=== PATIENT | female | born 1925 | race Caucasian/White ===

== ENCOUNTER 2016-12-04 18:12 | Inpatient (IN) | payer MEDICARE, OTHER ==
[~2016-12-04] VITALS: Ht 152.4 cm; Wt 55.3 kg
[~2016-12-04 18:12] MED LIST: AMLO5TAB2 PO; ASPI-495 PO; BETA1TAB18 PO; CARV25TA PO; CHOL100062 PO; EZET10TA PO; FENO134C PO; FERR-58 PO; HYDR-4077 PO; LEVO100T9 PO; MELA3TAB PO; OMEP20CA4 PO; SIMV20TA6 PO; SITA100T PO
--- NOTE | 2016-12-04 18:20 | NUR ---
PT BIBRA FROM HOME TO ER BED 09. WITNESSED SYNCOPE AT HOME. POSTERIOR HEAD HEMATOMA NOTED. MINIMAL PAIN. PT IS AWAKE, RESPONSIVE. PLACED ON MONITOR. STABLE VITALS AWAITING MD ERNST.
--- NOTE | 2016-12-04 18:40 | NUR ---
DR UP AT BEDSIDE FOR EVAL.
--- NOTE | 2016-12-04 18:50 | NUR ---
CALLED NURSING SUP. FOR TELE BED
--- NOTE | 2016-12-04 18:53 | NUR ---
RN LABOR AND DELIVERY AT BEDSIDE FOR BLOOD DRAW.
[2016-12-04 18:56] LABS: BASOPHILS % (AUTO) 0.3 % (0.0-2.0); EOSINOPHILS # (AUTO) 0.1 /CMM (0.0-0.7); EOSINOPHILS % (AUTO) 1.4 % (0.0-6.0); HEMATOCRIT 33 % (33-45); HEMOGLOBIN 11.2 g/dL (11.5-14.8); LYMPHOCYTES # (AUTO) 0.7 /CMM (0.8-4.8); LYMPHOCYTES % (AUTO) 9.6 % (20.0-44.0); MEAN CORPUSCULAR HEMOGLOBIN 33 PG (26.0-33.0); MEAN CORPUSCULAR HGB CONC 34 g/dl (31.0-36.0); MEAN CORPUSCULAR VOLUME 95 fL (82-100); MONOCYTES # (AUTO) 0.6 /CMM (0.1-1.30); MONOCYTES % (AUTO) 8.2 % (2.0-12.0); NEUTROPHILS # (AUTO) 5.8 /CMM (1.8-8.9); NEUTROPHILS % (AUTO) 80.5 % (43.0-81.0); PLATELET COUNT (AUTO) 232 /CMM (150-450); RDW COEFFICIENT OF VARIATION 14.6 (11.5-15.0); RED BLOOD CELL COUNT(AUTO) 3.43 MIL/uL (4.0-5.2); WHITE BLOOD COUNT (AUTO) 7.2 K/uL (4.3-11.0)
--- NOTE | 2016-12-04 19:04 | NUR ---
PT TO RADOLOGY FOR HEAD CT SCAN VIA [facility].
[2016-12-04 19:08] LABS: INR 1.07 (0.87-1.13); PROTHROMBIN TIME 11.1 SECS (9.5-12.7)
[2016-12-04 19:10] LABS: ALBUMIN 3.3 g/dL (3.4-5.0); BILIRUBIN,DIRECT 0.1 mg/dL (0.0-0.2); BILIRUBIN,TOTAL 0.2 mg/dL (0.2-1.0); CALCIUM, SERUM 9.3 mg/dL (8.5-10.1); CREATININE 0.9 mg/dL (0.6-1.3); POTASSIUM 3.5 mmol/L (3.5-5.1); TOTAL PROTEIN, SERUM 6.8 g/dL (6.4-8.2)
[2016-12-04 19:11] LABS: TROPONIN I 0.019 ng/mL (0.00-0.056)
[2016-12-04] MEDS ORDERED: CYAN10006 IM (19:16)
[2016-12-04] MEDS ORDERED: TRAZ-144 PO (19:16)
[2016-12-04] MEDS ORDERED: RANI75TA19 PO (19:16)
[2016-12-04] MEDS ORDERED: CLON0.1T PO (19:16)
[2016-12-04] MEDS ORDERED: CHOL100044 PO (19:16)
--- NOTE | 2016-12-04 19:30 | NUR ---
PT UNABLE TO PROVIDE URINE SAMPLE AT THIS TIME.
[2016-12-04 20:00] VITALS: BP 143/52
--- NOTE | 2016-12-04 20:17 | NUR ---
REPORT GIVEN TO DENISE. PT AWAITING TRANSFER TO FLOOR.
[2016-12-04] MEDS ORDERED: MENTHOL/CETYLPYRD (CEPACOL) 1 LOZ LOZENGE PO ONE (20:30)
[2016-12-04] MEDS ORDERED: ACETAMINOPHEN ES 500 MG TABLET PO ONE (20:30)
[2016-12-04] MEDS ORDERED: ACETAMINOPHEN ES 500 MG TABLET ONE (20:37)
[2016-12-04 21:08] LABS: APPEARANCE,URINE Clear (CLEAR); BILIRUBIN,URINE Negative (NEGATIVE); BLOOD, URINE Negative Ery/uL (NEGATIVE); COLOR,URINE Yellow (YELLOW); KETONES,URINE Negative (NEGATIVE); LEUKOCYTE ESTERASE ,URINE Trace (NEGATIVE); NITRITE, URINE Negative (NEGATIVE); PROTEIN,URINE Negative (NEGATIVE); UGLUCOSE Negative (NEGATIVE); UROBILINOGEN,URINE 0.2 EU/dL (0.2)
[2016-12-04 21:10] VITALS: BP 143/52
[2016-12-04 21:21] LABS: ADD URINE CULTURE NO; BACTERIA,URINE Few /HPF (None Seen); RBC,URINE 0-2 /HPF (0-2); SQUAMOUS EPITHELIAL CELL,UR Rare /HPF (None Seen)
[2016-12-04] MEDS ORDERED: ONDANSETRON HCL/PF 4 MG/2 ML VIAL IV PRN (21:30)
[2016-12-04] MEDS ORDERED: ACETAMINOPHEN 325 MG TABLET PO PRN (21:30)
--- NOTE | 2016-12-04 22:00 | NUR ---
ASPHALT DAUBER NOTES RECEIVED PT FROM ER VIA [facility]. S/P SYNCOPE EPISODE PER PT AND FAMILY. DX OF SYNCOPE. ON ROOM AIR, JULISSA WELL, SPO2 >92%. TELE READS SINUS WITH BBB AT 67 BPM. NO ACUTE DISTRESS NOTED. POSTERIOR HEAD ASSESSED, NO S/S OF BRUISING OR HEMATOMA. LEFT TOES BRUISED DUE TO TRAUMA PER PT. LEFT HAND 20G PIV, NS AT 75 ML/HR INITIATED. CALL LIGHT WITHIN REACH, HOB ELEVATED, SIDE RAIL X2.
[2016-12-04] MEDS ORDERED: GUAIFENESIN/D-METHORPHAN HB 5 ML UDC ONE (22:03)
[2016-12-04] MEDS ORDERED: IV SET PRIMARY PUMP SET 1 EA INFUS.SET MC ONE (22:03)
[2016-12-04] MEDS: GUAIFENESIN/D-METHORPHAN HB 5 ML UDC PO PRN (22:10)
[2016-12-04] MEDS: IV NS 0.9% 1,000 ML IV PRN (22:10)
[2016-12-05] VITALS (8 sets, daily range): BP systolic 120–167; BP diastolic 40–80
[2016-12-05] MEDS: BLOOD SUGAR DIAGNOSTIC 1 EACH STRIP IN SCH ×4 (06:42→21:16)
[2016-12-05 07:15] LABS: BASOPHILS % (AUTO) 0.2 % (0.0-2.0); EOSINOPHILS # (AUTO) 0.1 /CMM (0.0-0.7); EOSINOPHILS % (AUTO) 1.8 % (0.0-6.0); HEMATOCRIT 30 % (33-45); HEMOGLOBIN 9.9 g/dL (11.5-14.8); LYMPHOCYTES # (AUTO) 0.7 /CMM (0.8-4.8); MEAN CORPUSCULAR HEMOGLOBIN 32 PG (26.0-33.0); MEAN CORPUSCULAR HGB CONC 34 g/dl (31.0-36.0); MEAN CORPUSCULAR VOLUME 96 fL (82-100); MONOCYTES # (AUTO) 0.5 /CMM (0.1-1.30); MONOCYTES % (AUTO) 8.3 % (2.0-12.0); NEUTROPHILS # (AUTO) 4.5 /CMM (1.8-8.9); NEUTROPHILS % (AUTO) 77.7 % (43.0-81.0); PLATELET COUNT (AUTO) 200 /CMM (150-450); RDW COEFFICIENT OF VARIATION 15.1 (11.5-15.0); RED BLOOD CELL COUNT(AUTO) 3.06 MIL/uL (4.0-5.2); WHITE BLOOD COUNT (AUTO) 5.8 K/uL (4.3-11.0)
--- NOTE | 2016-12-05 07:15 | NUR ---
FLEET MANAGER INITIAL NOTES RECEIVED REPORT AND PT FROM PM NURSE, PT RESTING IN BED, A&O X3, AWAKE ALERT, ON 2L NC SAT ABOVE 97%, ON TELE MON SR WITH BBB HR 72, LT HAND 20 G IV RUNNING NS @ 75ML/HR NO INFILTRATION NOTED, ALL NEEDS MET, ALL SAFETY MEASURES INITIATED, SIDE RAILS X2, BED LOW AND LOCKED, CALL LIGHT WITHIN REACH, WILL CONTINUE TO MONITOR.
[2016-12-05] MEDS ORDERED: DEXTROSE 50%-WATER 50 ML DISP.SYRIN IV PRN (07:30)
[2016-12-05] MEDS ORDERED: ENOXAPARIN SODIUM 30 MG/0.3 ML DISP.SYRIN SQ SCH (07:30)
[2016-12-05 07:32] LABS: TROPONIN I 0.029 ng/mL (0.00-0.056)
[2016-12-05 07:57] LABS: CALCIUM, SERUM 8.6 mg/dL (8.5-10.1); CREATININE 0.8 mg/dL (0.6-1.3); POTASSIUM 3.7 mmol/L (3.5-5.1)
[2016-12-05] MEDS ORDERED: CLONIDINE HCL 0.1 MG TABLET PO PRN (08:00)
[2016-12-05] MEDS ORDERED: SIMVASTATIN 20 MG TABLET PO SCH (08:00)
[2016-12-05] MEDS: FAMOTIDINE (20 MG) 20 MG TABLET PO SCH (09:00)
[2016-12-05] MEDS: hydrALAZINE HCL 50 MG TABLET PO SCH ×2 (09:00→16:54)
[2016-12-05] MEDS: CARVEDILOL 12.5 MG TABLET PO SCH ×2 (09:00→20:40)
[2016-12-05] MEDS ORDERED: ASPIRIN 81 MG TAB.CHEW PO SCH (09:00)
[2016-12-05] MEDS: ENOXAPARIN SODIUM 30 MG/0.3 ML DISP.SYRIN SQ SCH (09:00)
[2016-12-05] MEDS: LEVOTHYROXINE SODIUM 100 MCG TABLET PO SCH ×3 (09:00→17:56)
[2016-12-05] MEDS: SITAGLIPTIN PHOSPHATE 50 MG TABLET PO SCH (09:29)
[2016-12-05] MEDS: MULTIVITAMINS W-MINERALS 1 TAB TABLET PO SCH ×2 (09:29→16:54)
[2016-12-05] MEDS: FERROUS SULFATE (325 MG) 325 MG/TAB TABLET PO SCH (09:29)
[2016-12-05] MEDS: CHOLECALCIFEROL 1,000 UNIT TABLET (VIT D3) PO SCH ×2 (09:29→16:57)
[2016-12-05] MEDS: EZETIMIBE 10 MG TABLET PO SCH (09:30)
[2016-12-05 10:47] LABS: THYROID STIMULATING HORMONE 4.981 uIU/mL (0.358-3.74)
[2016-12-05] MEDS: IV NS 0.9% 1,000 ML IV PRN (11:15)
[2016-12-05] MEDS: AZITHROMYCIN 250 MG TABLET PO SCH (13:07)
[2016-12-05] MEDS: GUAIFENESIN/D-METHORPHAN HB 5 ML UDC PO PRN (14:17)
[2016-12-05] MEDS ORDERED: SECONDARY IV SET 1 EA INFUS.SET MC ONE (15:56)
[2016-12-05] MEDS: SOD FERRIC GLUC 125 MG in IV NS 0.9% 100 ML IV SCH (16:22)
[2016-12-05] MEDS: ASPIRIN EC 81 MG TABLET.DR PO SCH (16:58)
[2016-12-05] MEDS: AMLODIPINE BESYLATE 5 MG TABLET PO SCH (16:58)
--- NOTE | 2016-12-05 19:39 | NUR ---
RN-- RECEIVED AWAKE, ALERT ORIENTED X3, ON BEDPAN TO VOID, VOIDED FREELY TO 150 CC OF YELLOW URINE, DENIES CHEST PAINS, NO SOB, FALL PRECAUTION/INSTRUCTED TO CALL FOR ASSISTANCE BEFORE GETTING OUT BED/ CALL HAWKINS WITHIN REACH, ORTHOSTATIC BP TAKEN LEFT ARM 144/50 , SITTING BP 145/51, STANDING BP 138/48, NO DIZZINESS. TEMP 99.7 HR 71 RR 18 O2 SAT 96% ON O2 2LPM VIA NASAL CANNULA
--- NOTE | 2016-12-05 21:05 | NUR ---
RN-- ONE HOME MED FENOFIBRATE DUE AT 1800 NOT CHARTED, CALL MADE BY CHARGE NURSE HUGH TO [facility] RE[facility] TO VERIFY IF GIVEN, BRANDT REINA SAID SHE DID NOT GIVE IT, WILL GIVE THE MED NOW
[2016-12-05] MEDS: FENOFIBRATE 134 MG PO SCH (21:10)
[2016-12-05] MEDS ORDERED: TRAZODONE 50 MG TABLET PO PRN (22:00)
[2016-12-06] MEDS: IV NS 0.9% 1,000 ML IV PRN ×2 (01:27→09:51)
[2016-12-06 04:00] VITALS: BP 151/55
[2016-12-06 05:00] VITALS: BP 151/55
[2016-12-06 07:10] LABS: BASOPHILS % (AUTO) 0.4 % (0.0-2.0); EOSINOPHILS # (AUTO) 0.1 /CMM (0.0-0.7); HEMATOCRIT 30 % (33-45); HEMOGLOBIN 10.1 g/dL (11.5-14.8); LYMPHOCYTES # (AUTO) 0.8 /CMM (0.8-4.8); LYMPHOCYTES % (AUTO) 12.3 % (20.0-44.0); MEAN CORPUSCULAR HEMOGLOBIN 33 PG (26.0-33.0); MEAN CORPUSCULAR HGB CONC 34 g/dl (31.0-36.0); MEAN CORPUSCULAR VOLUME 97 fL (82-100); MONOCYTES # (AUTO) 0.5 /CMM (0.1-1.30); MONOCYTES % (AUTO) 8.9 % (2.0-12.0); NEUTROPHILS # (AUTO) 4.7 /CMM (1.8-8.9); NEUTROPHILS % (AUTO) 76.4 % (43.0-81.0); PLATELET COUNT (AUTO) 204 /CMM (150-450); RDW COEFFICIENT OF VARIATION 15.4 (11.5-15.0); RED BLOOD CELL COUNT(AUTO) 3.11 MIL/uL (4.0-5.2); WHITE BLOOD COUNT (AUTO) 6.1 K/uL (4.3-11.0)
--- NOTE | 2016-12-06 07:30 | NUR ---
INITIAL NOTE PATIENT RESTING IN BED A+OX3, MAKES NEEDS KNOWN. DENIES PAIN, DENIES SOB. DENIES DIZZINESS. BREATHING WNL ON 2L NC O2. STATES HAS A PRODUCTIVE COUGH. NO SPUTUM OBSERVED AT THIS TIME. WILL INFORM MD. BRISCOE ON L HAND PATENT, NO COMPLICATIONS. INFUSING NS @ 125/HR. DISCUSSED PLAN OF CARE. CALL LIGHT IN REACH.
[2016-12-06] MEDS: BLOOD SUGAR DIAGNOSTIC 1 EACH STRIP IN SCH ×4 (07:56→22:00)
[2016-12-06 08:00] VITALS: BP_SYST 152; BP_SYST 156; BP_SYST 160; BP_DIAS 49; BP_DIAS 55; BP_DIAS 61
[2016-12-06] MEDS: AZITHROMYCIN 250 MG TABLET PO SCH (08:03)
[2016-12-06] MEDS: EZETIMIBE 10 MG TABLET PO SCH (08:04)
[2016-12-06] MEDS: CHOLECALCIFEROL 1,000 UNIT TABLET (VIT D3) PO SCH ×2 (08:04→17:19)
[2016-12-06] MEDS: MULTIVITAMINS W-MINERALS 1 TAB TABLET PO SCH ×2 (08:04→17:18)
[2016-12-06] MEDS: LEVOTHYROXINE SODIUM 100 MCG TABLET PO SCH (08:04)
[2016-12-06] MEDS: FAMOTIDINE (20 MG) 20 MG TABLET PO SCH (08:05)
[2016-12-06] MEDS: CARVEDILOL 12.5 MG TABLET PO SCH ×2 (08:05→22:00)
[2016-12-06] MEDS: SITAGLIPTIN PHOSPHATE 50 MG TABLET PO SCH (08:05)
[2016-12-06] MEDS: hydrALAZINE HCL 50 MG TABLET PO SCH ×2 (08:05→17:18)
[2016-12-06] MEDS: FERROUS SULFATE (325 MG) 325 MG/TAB TABLET PO SCH (08:05)
[2016-12-06] MEDS: ENOXAPARIN SODIUM 30 MG/0.3 ML DISP.SYRIN SQ SCH ×2 (08:07→09:00)
--- NOTE | 2016-12-06 08:16 | NUR ---
PATIENT REFUSED LOVENOX- PROVIDED DETAILED EDUCATION ON RISK OF THROMBUS
[2016-12-06 08:25] LABS: ALBUMIN 2.7 g/dL (3.4-5.0); BILIRUBIN,TOTAL 0.3 mg/dL (0.2-1.0); CALCIUM, SERUM 8.6 mg/dL (8.5-10.1); CREATININE 0.7 mg/dL (0.6-1.3); MAGNESIUM 1.6 mg/dL (1.8-2.4); PHOSPHORUS 2.7 mg/dL (2.5-4.9); POTASSIUM 3.6 mmol/L (3.5-5.1); TOTAL PROTEIN, SERUM 6.1 g/dL (6.4-8.2)
[2016-12-06] MEDS: Magnesium 1GM/D5W 100ML PREMIX 100 ML IV SCH ×2 (11:22→12:45)
[2016-12-06] MEDS ORDERED: BENZONATATE 100 MG CAPSULE PO PRN (12:00)
[2016-12-06] MEDS: ALBUTEROL HALF STRENGTH 1.25 MG/3 ML VIAL.NEB NEB SCH ×2 (14:23→19:30)
[2016-12-06] MEDS: SOD FERRIC GLUC 125 MG in IV NS 0.9% 100 ML IV SCH (14:45)
[2016-12-06] MEDS: GUAIFENESIN/D-METHORPHAN HB 5 ML UDC PO PRN (14:48)
[2016-12-06 16:00] VITALS: BP 160/61
[2016-12-06] MEDS: ASPIRIN EC 81 MG TABLET.DR PO SCH (17:18)
[2016-12-06] MEDS: FENOFIBRATE 134 MG PO SCH (17:19)
[2016-12-06] MEDS: AMLODIPINE BESYLATE 5 MG TABLET PO SCH (17:19)
--- NOTE | 2016-12-06 19:45 | NUR ---
SANIYA/DIRECTOR OF FRONT OFFICE RECEIVED REPORT FROM DAY NURSE. PT'S FAMILY AT BEDSIDE, GOOD FAMILY SUPPORT. PLAN OF CARE PT IS TO BE DISCHARGE HOME TOMORROW. PT IS ALERT X3. PT IS ON N/C SATURATION IS 97%, NOTICED PRODUCTIVE COUGH. THERE IS PRN, FOR THIS. CALL LIGHT WITHIN REACH. PT CURRENTLY DENIES ANY PAIN AND NO SHORTNESS OF BREATH SEEN. WILL CONTINUE TO MONITOR THIS PT.
--- NOTE | 2016-12-06 19:54 | NUR ---
CLOSING NOTES LEFT PATIENT IN STABLE CONDITION- BREATHING AND LOC WNL. IV PATENT. CALL LIGHT IN REACH. ENDORSED TO NIGHT NURSE.
[2016-12-06 20:00] VITALS: BP 134/65
--- NOTE | 2016-12-06 22:20 | NUR ---
SANIYA/STRUCTURAL STEEL IRONWORKER PT'S BLOOD SUGAR IS 101, THERE IS NO COVERAGE FOR THIS PER MD ORDERS. NEXT BLOOD SUGAR IS IN THE MORNING BEFORE BREAKFAST. CALL LIGHT WITHIN REACH.
[2016-12-07] VITALS (8 sets, daily range): BP systolic 104–153; BP diastolic 47–75
[2016-12-07] MEDS: ALBUTEROL HALF STRENGTH 1.25 MG/3 ML VIAL.NEB NEB SCH ×4 (01:52→19:25)
[2016-12-07 06:52] LABS: BASOPHILS % (AUTO) 0.3 % (0.0-2.0); EOSINOPHILS # (AUTO) 0.1 /CMM (0.0-0.7); HEMATOCRIT 30 % (33-45); HEMOGLOBIN 10.2 g/dL (11.5-14.8); LYMPHOCYTES # (AUTO) 0.7 /CMM (0.8-4.8); LYMPHOCYTES % (AUTO) 14.1 % (20.0-44.0); MEAN CORPUSCULAR HEMOGLOBIN 33 PG (26.0-33.0); MEAN CORPUSCULAR HGB CONC 34 g/dl (31.0-36.0); MEAN CORPUSCULAR VOLUME 97 fL (82-100); MONOCYTES # (AUTO) 0.6 /CMM (0.1-1.30); MONOCYTES % (AUTO) 11.9 % (2.0-12.0); NEUTROPHILS # (AUTO) 3.6 /CMM (1.8-8.9); NEUTROPHILS % (AUTO) 71.7 % (43.0-81.0); PLATELET COUNT (AUTO) 202 /CMM (150-450); RDW COEFFICIENT OF VARIATION 15.7 (11.5-15.0); RED BLOOD CELL COUNT(AUTO) 3.15 MIL/uL (4.0-5.2); WHITE BLOOD COUNT (AUTO) 5.1 K/uL (4.3-11.0)
[2016-12-07 07:14] LABS: CALCIUM, SERUM 8.6 mg/dL (8.5-10.1); CREATININE 0.6 mg/dL (0.6-1.3); POTASSIUM 3.6 mmol/L (3.5-5.1)
--- NOTE | 2016-12-07 08:00 | NUR ---
MS RN NOTE PATIENT IN BED ,ALL NEEDS ATTENDED ,LT HAND HL WITH TKO, NO C]O PAIN OR COUGH AT THIS TIME , ALL NEEDS ATTENDED ,BED IN LOWEST AND LOCKED POSITION , ON 2L NA NO SOB NOTED WILL CONT TO MONITOR CLOSELY
[2016-12-07] MEDS: CARVEDILOL 12.5 MG TABLET PO SCH ×2 (09:00→20:31)
[2016-12-07] MEDS: SITAGLIPTIN PHOSPHATE 50 MG TABLET PO SCH (09:33)
[2016-12-07] MEDS: MULTIVITAMINS W-MINERALS 1 TAB TABLET PO SCH ×2 (09:33→16:44)
[2016-12-07] MEDS: LEVOTHYROXINE SODIUM 100 MCG TABLET PO SCH (09:33)
[2016-12-07] MEDS: FERROUS SULFATE (325 MG) 325 MG/TAB TABLET PO SCH (09:33)
[2016-12-07] MEDS: FAMOTIDINE (20 MG) 20 MG TABLET PO SCH (09:33)
[2016-12-07] MEDS: EZETIMIBE 10 MG TABLET PO SCH (09:33)
[2016-12-07] MEDS: AZITHROMYCIN 250 MG TABLET PO SCH (09:34)
[2016-12-07] MEDS: hydrALAZINE HCL 50 MG TABLET PO SCH ×2 (09:34→16:44)
[2016-12-07] MEDS: CHOLECALCIFEROL 1,000 UNIT TABLET (VIT D3) PO SCH ×2 (09:35→16:44)
[2016-12-07] MEDS: ENOXAPARIN SODIUM 30 MG/0.3 ML DISP.SYRIN SQ SCH (09:36)
[2016-12-07] MEDS: BLOOD SUGAR DIAGNOSTIC 1 EACH STRIP IN SCH ×4 (09:43→21:18)
[2016-12-07] MEDS: INSULIN REGULAR, HUMAN 100 UNIT/ML 3 ML VIAL SQ PRN ×3 (09:44→21:19)
--- NOTE | 2016-12-07 10:06 | NUR ---
RN NOTE SEEN BY DR PRICE NOTIFIED THAT HR WAS 58 HOLD COREG AT THIS TIME WILL F\U Addendum: 12/07/16 at 1342 by ORQUIDEA KING RN C\O COUGH ROBITUSSIN PO GIVEN ORDERED
[2016-12-07] MEDS: GUAIFENESIN/D-METHORPHAN HB 5 ML UDC PO PRN (11:37)
[2016-12-07] MEDS: predniSONE 20 MG TABLET PO SCH (11:39)
--- NOTE | 2016-12-07 13:00 | NUR ---
MS RN NOTE HAVING LUNCH , ALL NEEDS ATTENDED NOT IN ACUTE DISTRES
[2016-12-07] MEDS: SOD FERRIC GLUC 125 MG in IV NS 0.9% 100 ML IV SCH (13:58)
--- NOTE | 2016-12-07 17:00 | NUR ---
MS RN NOTE ASSISTED TO BR, ABLE TO URINATE, ALL NEEDS ATTENDED
[2016-12-07] MEDS: AMLODIPINE BESYLATE 5 MG TABLET PO SCH (17:15)
[2016-12-07] MEDS: FENOFIBRATE 134 MG PO SCH (17:15)
[2016-12-07] MEDS: ASPIRIN EC 81 MG TABLET.DR PO SCH (17:15)
--- NOTE | 2016-12-07 18:48 | NUR ---
MS RN NOTE HAVING DINNER , ABLE TO EAT SELF DAUGHTER AT BEDSIDE, NOT IN ACUTE DISTRESS
[2016-12-08] VITALS (7 sets, daily range): BP systolic 114–158; BP diastolic 39–64
[2016-12-08] MEDS: ALBUTEROL HALF STRENGTH 1.25 MG/3 ML VIAL.NEB NEB SCH ×3 (00:46→13:55)
[2016-12-08] MEDS: BLOOD SUGAR DIAGNOSTIC 1 EACH STRIP IN SCH ×2 (06:34→11:42)
--- NOTE | 2016-12-08 07:30 | NUR ---
RN INITIAL NOTES: Received patient on bed during rounds, asleep, alert and oriented x3, able to make needs known, call lights placed within reached, instructed patient to press call light when in need of any assistance. NO SOB, No LOC, respirations are even and unlabored, no acute distress noted. Kept clean and dry. Provided safety and comfort measures. Bed low and locked position, fall precaution observed. Patient able to turn from side to side, motivated to self-care. To continue to monitor accordingly.
[2016-12-08 07:50] LABS: CALCIUM, SERUM 8.4 mg/dL (8.5-10.1); CREATININE 0.6 mg/dL (0.6-1.3)
[2016-12-08 08:21] LABS: BASOPHILS % (AUTO) 0.4 % (0.0-2.0); EOSINOPHILS # (AUTO) 0.1 /CMM (0.0-0.7); EOSINOPHILS % (AUTO) 1.3 % (0.0-6.0); HEMATOCRIT 29 % (33-45); HEMOGLOBIN 9.7 g/dL (11.5-14.8); LYMPHOCYTES # (AUTO) 0.8 /CMM (0.8-4.8); LYMPHOCYTES % (AUTO) 16.1 % (20.0-44.0); MEAN CORPUSCULAR HEMOGLOBIN 32 PG (26.0-33.0); MEAN CORPUSCULAR HGB CONC 33 g/dl (31.0-36.0); MEAN CORPUSCULAR VOLUME 98 fL (82-100); MONOCYTES # (AUTO) 0.5 /CMM (0.1-1.30); MONOCYTES % (AUTO) 9.8 % (2.0-12.0); NEUTROPHILS # (AUTO) 3.7 /CMM (1.8-8.9); NEUTROPHILS % (AUTO) 72.4 % (43.0-81.0); PLATELET COUNT (AUTO) 201 /CMM (150-450); RDW COEFFICIENT OF VARIATION 15.5 (11.5-15.0); RED BLOOD CELL COUNT(AUTO) 3.02 MIL/uL (4.0-5.2); WHITE BLOOD COUNT (AUTO) 5.1 K/uL (4.3-11.0)
[2016-12-08] MEDS: FERROUS SULFATE (325 MG) 325 MG/TAB TABLET PO SCH (08:33)
[2016-12-08] MEDS: CARVEDILOL 12.5 MG TABLET PO SCH (08:33)
[2016-12-08] MEDS: hydrALAZINE HCL 50 MG TABLET PO SCH (08:33)
[2016-12-08] MEDS: CHOLECALCIFEROL 1,000 UNIT TABLET (VIT D3) PO SCH (08:34)
[2016-12-08] MEDS: predniSONE 20 MG TABLET PO SCH (08:34)
[2016-12-08] MEDS: LEVOTHYROXINE SODIUM 100 MCG TABLET PO SCH (08:34)
[2016-12-08] MEDS: MULTIVITAMINS W-MINERALS 1 TAB TABLET PO SCH (08:34)
[2016-12-08] MEDS: SITAGLIPTIN PHOSPHATE 50 MG TABLET PO SCH (08:34)
[2016-12-08] MEDS: FAMOTIDINE (20 MG) 20 MG TABLET PO SCH (08:34)
[2016-12-08] MEDS: AZITHROMYCIN 250 MG TABLET PO SCH (08:35)
[2016-12-08] MEDS: EZETIMIBE 10 MG TABLET PO SCH (08:35)
[2016-12-08] MEDS: ENOXAPARIN SODIUM 30 MG/0.3 ML DISP.SYRIN SQ SCH (08:41)
[2016-12-08] MEDS: INSULIN REGULAR, HUMAN 100 UNIT/ML 3 ML VIAL SQ PRN (11:43)
--- NOTE | 2016-12-08 14:25 | NUR ---
RN NOTES: Seen and examined by Dr. Biggs today with orders noted and carried out. For dc today, home medication verified with Dr. Biggs and instructed the daughter in-law to follow and f/u within a week of dc. As per Dr. Biggs to continue Z-pack at home, with regards to Prednisone medication, instructed daughter in law Lisa to get prescription from office of Dr. Biggs. IV Plug removed over left hand,. slight pressure dressing applied, no bleeding noted. Patient and daughter instructed of home instruction, Dc paper forms explained and signed by Lisa, and verbalized understanding. Left the unit at this time and accompanied by PET SITTING to [facility] wheelchair in stable condition.
[2016-12-11] MEDS ORDERED: CYANOCOBALAMIN 1,000 MCG/ML VIAL IM SCH (08:00)
== END 2016-12-08 14:00 | disposition home or self-care (01) | DRG 74 ==
LOC: ER 18:13 → TELE1 20:36 → MEDSG1 12-05 10:12
PROVIDERS: ADMIT Legal Medicine; ATTEND Legal Medicine
DX: G90.8 Other disorders of autonomic nervous system (principal); R55 Syncope and collapse; I10 Essential (primary) hypertension; E11.9 Type 2 diabetes mellitus without complications; E03.9 Hypothyroidism, unspecified; J20.9 Acute bronchitis, unspecified; I11.9 Hypertensive heart disease without heart failure; E78.5 Hyperlipidemia, unspecified; D64.9 Anemia, unspecified; M81.0 Age-related osteoporosis without current pathological fracture; S00.03XA Contusion of scalp, initial encounter; W19.XXXA Unspecified fall, initial encounter; Z86.73 Personal history of transient ischemic attack (TIA), and cerebral infarction without residual deficits; Z95.2 Presence of prosthetic heart valve
CPT/HCPCS: 36415; 70450-TC; 71010-TC; 73660-TC; 80048-TC; 80053-TC; 80061-TC; 80076-TC; 81000-TC; 82306; 82728-TC; 82962-TC; 83540-TC; 83735-TC; 84100-TC; 84439-TC; 84443-TC; 84484-TC; 85025-TC; 85730-TC; 87081-TC; 87086-TC; 93307-TC; 94799-TC; 97001-TC; A4606; A4623; J1650; J1815; J2405; J2916; J3475; J7030; Z7610

== ENCOUNTER 2017-03-28 16:41 | Inpatient (IN) | payer MEDICARE, OTHER ==
[~2017-03-28] VITALS: Ht 152.4 cm; Wt 54.9 kg
[~2017-03-28 16:41] MED LIST changes: +CHOL100044 PO; -CHOL100062 PO; +CLON0.1T PO; +CYAN10006 IM; -MELA3TAB PO; -OMEP20CA4 PO; +RANI75TA19 PO; +TRAZ-144 PO
[2017-03-28 17:26] LABS: BASOPHILS % (AUTO) 0.5 % (0.0-2.0); EOSINOPHILS # (AUTO) 0.1 /CMM (0.0-0.7); EOSINOPHILS % (AUTO) 1.5 % (0.0-6.0); HEMATOCRIT 37 % (33-45); HEMOGLOBIN 12.3 g/dL (11.5-14.8); LYMPHOCYTES # (AUTO) 1.1 /CMM (0.8-4.8); LYMPHOCYTES % (AUTO) 15.6 % (20.0-44.0); MEAN CORPUSCULAR HEMOGLOBIN 32 PG (26.0-33.0); MEAN CORPUSCULAR HGB CONC 33 g/dl (31.0-36.0); MEAN CORPUSCULAR VOLUME 97 fL (82-100); MONOCYTES # (AUTO) 0.6 /CMM (0.1-1.30); MONOCYTES % (AUTO) 8.9 % (2.0-12.0); NEUTROPHILS # (AUTO) 5.1 /CMM (1.8-8.9); NEUTROPHILS % (AUTO) 73.5 % (43.0-81.0); PLATELET COUNT (AUTO) 275 /CMM (150-450); RDW COEFFICIENT OF VARIATION 14.8 (11.5-15.0); RED BLOOD CELL COUNT(AUTO) 3.83 MIL/uL (4.0-5.2); WHITE BLOOD COUNT (AUTO) 6.9 K/uL (4.3-11.0)
[2017-03-28] MEDS ORDERED: IV NS 0.9% 1,000 ML BAG IV ONE (17:30)
[2017-03-28 17:33] LABS: CALCIUM, SERUM 9.5 mg/dL (8.5-10.1); CARBON DIOXIDE 29 mmol/L (21-32); CHLORIDE 106 mmol/L (98-107); CREATININE 0.8 mg/dL (0.6-1.3); GLUCOSE 88 mg/dL (74-106); POTASSIUM 4.2 mmol/L (3.5-5.1); SODIUM SERUM 143 mmol/L (136-145); UREA NITROGEN, BLOOD 22 mg/dL (7-18)
[2017-03-28] MEDS ORDERED: IV NS 0.9% 1,000 ML ONE (17:35)
[2017-03-28] MEDS ORDERED: IV SET PRIMARY 1 EA INFUS.SET MC ONE (17:35)
[2017-03-28 17:36] LABS: INR 1.06 (0.87-1.13)
[2017-03-28 17:39] LABS: ALANINE AMINOTRANSFERASE 12 U/L (12-78); ALBUMIN 3.4 g/dL (3.4-5.0); ALKALINE PHOSPHATASE 23 U/L (46-116); ASPARTATE AMINOTRANSFERASE 19 U/L (15-37); BILIRUBIN,DIRECT 0.1 mg/dL (0.0-0.2); BILIRUBIN,TOTAL 0.3 mg/dL (0.2-1.0); TOTAL PROTEIN, SERUM 7.2 g/dL (6.4-8.2)
[2017-03-28 17:41] LABS: TROPONIN I < 0.017 ng/mL (0.00-0.056)
[2017-03-28 18:22] LABS: APPEARANCE,URINE Clear (CLEAR); BILIRUBIN,URINE Negative (NEGATIVE); BLOOD, URINE Negative Ery/uL (NEGATIVE); COLOR,URINE Yellow (YELLOW); KETONES,URINE Negative (NEGATIVE); LEUKOCYTE ESTERASE ,URINE Trace (NEGATIVE); NITRITE, URINE Positive (NEGATIVE); PROTEIN,URINE Negative (NEGATIVE); UGLUCOSE Negative (NEGATIVE); UROBILINOGEN,URINE 0.2 EU/dL (0.2)
[2017-03-28] MEDS ORDERED: hydrALAZINE HCL 25 MG TABLET PO ONE (18:30)
[2017-03-28] MEDS ORDERED: hydrALAZINE HCL 10 MG TABLET PO ONE (18:30)
[2017-03-28 18:34] LABS: BACTERIA,URINE 1+ /HPF (None Seen); RBC,URINE 0-2 /HPF (0-2); SQUAMOUS EPITHELIAL CELL,UR Few /HPF (None Seen)
--- NOTE | 2017-03-28 19:23 | NUR ---
89 YO FEMALE BB RA FROM HOME. PT IS ALERT X 3, C/O "NOT FEELING WELL X 2 WEEKS". RECIEVED PT IN ER BED, NAD NOTED, SKIN WARM AND DRY, RR EVEN AND UNLABORED. AWAITING ORDERS FROM PROPVIDER, WILL CONTINUE TO MONITOR
--- NOTE | 2017-03-28 19:42 | NUR ---
CALLED DR. PRICE'S ANSWERING SERVICE, WAS TOLD TO CALL [facility] FOR ADMISSION
--- NOTE | 2017-03-28 19:43 | NUR ---
CALLED NURSING SUP. FOR TELE BED
--- NOTE | 2017-03-28 20:15 | NUR ---
TELE [id number]
--- NOTE | 2017-03-28 20:27 | NUR ---
REPORT GIVEN TO MEDICAID BILLER FOR ALEIDA
[2017-03-28 20:35] VITALS: BP 123/63
--- NOTE | 2017-03-28 20:35 | NUR ---
tele/rn notes new admitted patient is a 89 yo female with dx of uti and weakness. alert, oriented x4, on tele monitor at sr 63. incontinent, with dm, hx of tia, htn cataract remove, anemia, anxiety and depression. lfa gauge 20 patent, bs at 183 w/ coverage 3 units. with iv atb prescribed due to uti. will follow up on am labs, mri result out patient.
[2017-03-28] MEDS ORDERED: ACETAMINOPHEN 325 MG TABLET PO PRN (21:00)
[2017-03-28] MEDS ORDERED: ZOLPIDEM TARTRATE 5 MG TABLET PO PRN (21:00)
[2017-03-28] MEDS ORDERED: Z GUARD REMEDY 2 OZ OINT TP PRN (21:00)
[2017-03-28] MEDS ORDERED: *INSULIN REGULAR(HUMULIN R)HUM 100 UNIT/ML VIAL SQ PRN (21:00)
[2017-03-28] MEDS ORDERED: MAG HYDROX/AL HYDROX/SIMETH 30 ML UDC PO PRN (21:00)
[2017-03-28] MEDS ORDERED: HYDROCODONE/APAP 5/325MG 1 EACH TABLET PO PRN (21:00)
[2017-03-28] MEDS ORDERED: CEFTRIAXONE 1 G VIAL IM SCH (21:00)
[2017-03-28] MEDS ORDERED: TRAZODONE 50 MG TABLET PO PRN (21:00)
[2017-03-28] MEDS ORDERED: DEXTROSE 50%-WATER 50 ML DISP.SYRIN IV PRN (21:00)
[2017-03-28] MEDS ORDERED: MAGNESIUM HYDROXIDE 30 ML UDC PO PRN (21:00)
[2017-03-28] MEDS ORDERED: CLONIDINE HCL 0.1 MG TABLET PO PRN (21:00)
[2017-03-28] MEDS: BLOOD SUGAR DIAGNOSTIC 1 EACH STRIP VI SCH (22:00)
[2017-03-28] MEDS ORDERED: CEFTRIAXONE 1 G VIAL ONE (23:52)
[2017-03-28] MEDS ORDERED: SECONDARY IV SET 1 EA INFUS.SET MC ONE ×2 (23:52→23:57)
[2017-03-28] MEDS ORDERED: IV D5W 50 ML IV ONE (23:53)
[2017-03-28] MEDS ORDERED: IV SET PRIMARY PUMP SET 1 EA INFUS.SET MC ONE (23:57)
[2017-03-28] MEDS ORDERED: IV D5/0.45 NACL 1,000 ML IV ONE (23:57)
[2017-03-29] VITALS: BP 124/55
[2017-03-29] MEDS: CEFTRIAXONE 1 G in IV D5W 50 ML IV SCH ×2 (00:14→23:38)
[2017-03-29] MEDS: IV D5/0.45 NACL 1,000 ML IV PRN ×2 (00:26→17:59)
[2017-03-29 04:00] VITALS: BP 146/59
--- NOTE | 2017-03-29 06:33 | NUR ---
tele/rn closing notes patient in bed, semi fowlers. alert, oriented x3. cooperative to care. no s/s of discomfort. verbalize needs at all times. assist to bathroom w/ walker. iv atb administered w/ no s/s of adverse effects. no pain, no nausea verbalized. will endorse to am rn for plan of care.
[2017-03-29] MEDS: BLOOD SUGAR DIAGNOSTIC 1 EACH STRIP VI SCH ×4 (07:06→21:41)
[2017-03-29 07:12] LABS: BASOPHILS % (AUTO) 0.4 % (0.0-2.0); EOSINOPHILS # (AUTO) 0.1 /CMM (0.0-0.7); EOSINOPHILS % (AUTO) 1.9 % (0.0-6.0); HEMATOCRIT 34 % (33-45); HEMOGLOBIN 11.2 g/dL (11.5-14.8); LYMPHOCYTES # (AUTO) 1.1 /CMM (0.8-4.8); LYMPHOCYTES % (AUTO) 13.7 % (20.0-44.0); MEAN CORPUSCULAR HEMOGLOBIN 32 PG (26.0-33.0); MEAN CORPUSCULAR HGB CONC 33 g/dl (31.0-36.0); MEAN CORPUSCULAR VOLUME 98 fL (82-100); MONOCYTES # (AUTO) 0.7 /CMM (0.1-1.30); MONOCYTES % (AUTO) 8.3 % (2.0-12.0); NEUTROPHILS # (AUTO) 6.1 /CMM (1.8-8.9); NEUTROPHILS % (AUTO) 75.7 % (43.0-81.0); PLATELET COUNT (AUTO) 233 /CMM (150-450); RDW COEFFICIENT OF VARIATION 15.5 (11.5-15.0); RED BLOOD CELL COUNT(AUTO) 3.46 MIL/uL (4.0-5.2)
[2017-03-29 07:13] LABS: INR 1.07 (0.87-1.13); PROTHROMBIN TIME 11.5 SECS (9.5-12.7)
[2017-03-29 07:17] LABS: CHOLESTEROL 160 mg/dL (<200); HDL CHOLESTEROL 47 mg/dL (40-60); LDL 94 mg/dL (0-99); TRIGLYCERIDES 85 mg/dL (30-150)
[2017-03-29 07:31] LABS: ALANINE AMINOTRANSFERASE 13 U/L (12-78); ALBUMIN 2.9 g/dL (3.4-5.0); ALKALINE PHOSPHATASE 21 U/L (46-116); ASPARTATE AMINOTRANSFERASE 20 U/L (15-37); BILIRUBIN,TOTAL 0.3 mg/dL (0.2-1.0); CALCIUM, SERUM 8.7 mg/dL (8.5-10.1); CARBON DIOXIDE 29 mmol/L (21-32); CHLORIDE 108 mmol/L (98-107); CREATININE 0.7 mg/dL (0.6-1.3); GLUCOSE 95 mg/dL (74-106); MAGNESIUM 1.9 mg/dL (1.8-2.4); PHOSPHORUS 3.4 mg/dL (2.5-4.9); POTASSIUM 3.3 mmol/L (3.5-5.1); SODIUM SERUM 144 mmol/L (136-145); TOTAL PROTEIN, SERUM 6.4 g/dL (6.4-8.2); UREA NITROGEN, BLOOD 20 mg/dL (7-18)
[2017-03-29 07:49] LABS: IRON, SERUM 57 ug/dl (50-175); TOTAL IRON BINDING CAPACITY 292 ug/dl (250-450)
[2017-03-29 08:00] VITALS: BP 140/62
--- NOTE | 2017-03-29 08:08 | NUR ---
RN notes RECEIVED PT, PT AWAKE, A&0X3. IV LOCATED ON L FA, 22G. WILL FOLLOW UP ON MRI RESULT FROM OUTPATIENT CLINIC. PT HAS REQUESTED SHINGLES VACCINE AND PNEUMONIA VACCINE. WILL FOLLOW UP. WILL CONTINUE TO MONITOR.
[2017-03-29] MEDS: FERROUS SULFATE (325 MG) 325 MG/TAB TABLET PO SCH (08:59)
[2017-03-29] MEDS: LEVOTHYROXINE SODIUM 100 MCG TABLET PO SCH (08:59)
[2017-03-29] MEDS: FAMOTIDINE (20 MG) 20 MG TABLET PO SCH (08:59)
[2017-03-29] MEDS: LINAGLIPTIN 5 MG TABLET PO SCH (08:59)
[2017-03-29] MEDS: PANTOPRAZOLE 40 MG TABLET.DR PO SCH (08:59)
[2017-03-29] MEDS: CHOLECALCIFEROL 1,000 UNIT TABLET (VIT D3) PO SCH ×2 (08:59→17:18)
[2017-03-29] MEDS: EZETIMIBE 10 MG TABLET PO SCH (08:59)
[2017-03-29] MEDS: CARVEDILOL 12.5 MG TABLET PO SCH ×2 (09:00→21:34)
[2017-03-29] MEDS: hydrALAZINE HCL 50 MG TABLET PO SCH ×2 (09:55→17:18)
[2017-03-29] MEDS: MULTIVITAMIN/LUTEIN/MINERALS 1 TAB PO SCH ×2 (09:58→17:18)
[2017-03-29 10:22] LABS: THYROID STIMULATING HORMONE 3.055 uIU/mL (0.358-3.74)
[2017-03-29] MEDS: POTASSIUM CHLORIDE 20 MEQ TAB.PRT.SR PO SCH ×3 (11:06→17:59)
--- NOTE | 2017-03-29 11:28 | NUR ---
RN NOTE AM COREG HELD DUE TO LOW PULSE AND PATIENT STATEMENT OF "FEELING DIZZY" AFTER WALKING TO THE BATHROOM.
--- NOTE | 2017-03-29 15:40 | NUR ---
RN NOTES ECHO COMPLETED. CAROTID DOPPLER IS STILL PENDING.
[2017-03-29 16:00] VITALS: BP 137/54
[2017-03-29] MEDS: ASPIRIN EC 81 MG TABLET.DR PO SCH (17:17)
[2017-03-29] MEDS: AMLODIPINE BESYLATE 5 MG TABLET PO SCH (17:17)
--- NOTE | 2017-03-29 19:05 | NUR ---
RN CLOSING NOTE PT IS STABLE IN BED WITH CAREGIVER BEDSIDE. CARDIAC ECHO AND CAROTID DOPPLER COMPLETED. NEW HOME MEDS RECONCILED. ALL PT NEEDS MET. WILL ENDORSE TO BALANCE WHEEL HAND FILER FOR ALEIDA.
--- NOTE | 2017-03-29 19:10 | NUR ---
RN NOTES RECEIVED PT AWAKE, HOB ELEVATED, NO SOB, NOT IN DISTRESS, ON ROOM AIR AND TOLERATED WELL. PT ALERT AND ORIENTED X 3, DENIES ANY PAIN AND DISCOMFORT AT THIS TIME. IV ACCESS ON LEFT FOREARM PATENT AND INTACT WITH ONGOING IVF INFUSING WELL. KEPT COMFORTABLE AND ATTENDED. KEPT BED IN THE LOWEST POSITION, LOCKED, SIDE RAILS UP X2 WITH CALL LIGHT WITH IN REACH. CAREGIVER AT BEDSIDE. WILL CONTINUE TO MONITOR PT.
[2017-03-29] MEDS: ONDANSETRON HCL/PF 4 MG/2 ML VIAL IVP PRN (19:20)
[2017-03-29 20:00] VITALS: BP 144/53
--- NOTE | 2017-03-29 20:55 | NUR ---
RN NOTES PT REQUESTING FOR SHOWER AT THIS TIME, VITAL SIGNS STABLE. FUAD GANN PRN PHYSICAL THERAPIST MADE AWARE . SHOWER GIVEN AND TOLERATED WELL. WILL CONTINUE TO MONITOR PT.
[2017-03-29] MEDS ORDERED: CEFTRIAXONE 1 G VIAL IV SCH (21:00)
[2017-03-29] MEDS: INSULIN REGULAR, HUMAN 100 UNIT/ML 3 ML VIAL SQ PRN (21:42)
--- NOTE | 2017-03-29 21:42 | NUR ---
RN NOTES BLOOD SUGAR CHECKED 114 MG/DL, NO INSULIN COVERAGE PER SLIDING SCALE. WILL CONTINUE TO MONITOR.
[2017-03-29 22:00] VITALS: BP 144/69
[2017-03-30] MEDS: BLOOD SUGAR DIAGNOSTIC 1 EACH STRIP VI SCH ×4 (06:31→22:01)
[2017-03-30] MEDS: INSULIN REGULAR, HUMAN 100 UNIT/ML 3 ML VIAL SQ PRN (06:35)
--- NOTE | 2017-03-30 06:35 | NUR ---
RN NOTES BLOOD SUGAR CHECKED 116 MG/DL, NO INSULIN COVERAGE PER SLIDING SCALE. WILL CONTINUE TO MONITOR.
[2017-03-30 06:49] LABS: BASOPHILS % (AUTO) 0.5 % (0.0-2.0); EOSINOPHILS # (AUTO) 0.1 /CMM (0.0-0.7); EOSINOPHILS % (AUTO) 2.3 % (0.0-6.0); HEMATOCRIT 34 % (33-45); HEMOGLOBIN 11.4 g/dL (11.5-14.8); LYMPHOCYTES # (AUTO) 1.2 /CMM (0.8-4.8); LYMPHOCYTES % (AUTO) 19.3 % (20.0-44.0); MEAN CORPUSCULAR HEMOGLOBIN 33 PG (26.0-33.0); MEAN CORPUSCULAR HGB CONC 34 g/dl (31.0-36.0); MEAN CORPUSCULAR VOLUME 99 fL (82-100); MONOCYTES # (AUTO) 0.6 /CMM (0.1-1.30); MONOCYTES % (AUTO) 9.5 % (2.0-12.0); NEUTROPHILS # (AUTO) 4.2 /CMM (1.8-8.9); NEUTROPHILS % (AUTO) 68.4 % (43.0-81.0); PLATELET COUNT (AUTO) 225 /CMM (150-450); RDW COEFFICIENT OF VARIATION 15.3 (11.5-15.0); RED BLOOD CELL COUNT(AUTO) 3.44 MIL/uL (4.0-5.2); WHITE BLOOD COUNT (AUTO) 6.2 K/uL (4.3-11.0)
--- NOTE | 2017-03-30 07:05 | NUR ---
MS RN OPENING NOTES RECEIVED PT. FROM NIGHTSHIFT NURSE IN STABLE CONDITION. PT. IS A/O X4. NO SOB OR SIGNS OF DISTRESS NOTED, ON ROOM AIR AND SATING WELL AT 95%. PT. DENIES ANY PAIN AT THIS TIME. IV PRESENT ON LEFT AC 22G PATENT AND INTACT INFUSING NS @75ML/HR. PT. IS TOLERATING INFUSION WELL. NO REDNESS OR SIGNS OF INFILTRATION NOTED. BED IN LOW LOCKED POSITION, SIDE RAILS UP X2, CALL LIGHT WITHIN REACH. PT. INSTRUCTED TO CALL FOR ASSISTANCE WHEN NEEDED AND TO GO TO THE BATHROOM. PT. VERBALIZED UNDERSTANDING. WILL CONTINUE TO MONITOR.
--- NOTE | 2017-03-30 07:06 | NUR ---
RN NOTES PT AWAKE, HOB ELEVATED, NO SOB, NOT IN DISTRESS, ON ROOM AIR WITH GOOD SATURATION. VITAL SIGNS STABLE, AFEBRILE. NO COMPLAIN OF PAIN, NO EPISODE OF NAUSEA AND VOMITING. PT WAS GIVEN SHOWER LAST NIGHT. ALL DUE MEDS GIVEN. NO SIGNIFICANT CHANGE IN CONDITION NOTED. WILL ENDORSE TO MORNING RN FOR CONTINUITY OF CARE.
[2017-03-30 07:07] LABS: ALANINE AMINOTRANSFERASE 21 U/L (12-78); ALBUMIN 2.9 g/dL (3.4-5.0); ALKALINE PHOSPHATASE 22 U/L (46-116); ASPARTATE AMINOTRANSFERASE 18 U/L (15-37); BILIRUBIN,TOTAL 0.2 mg/dL (0.2-1.0); CALCIUM, SERUM 8.8 mg/dL (8.5-10.1); CARBON DIOXIDE 31 mmol/L (21-32); CHLORIDE 108 mmol/L (98-107); CREATININE 0.9 mg/dL (0.6-1.3); GLUCOSE 117 mg/dL (74-106); MAGNESIUM 1.8 mg/dL (1.8-2.4); PHOSPHORUS 3.2 mg/dL (2.5-4.9); POTASSIUM 3.9 mmol/L (3.5-5.1); SODIUM SERUM 142 mmol/L (136-145); TOTAL PROTEIN, SERUM 6.5 g/dL (6.4-8.2); UREA NITROGEN, BLOOD 14 mg/dL (7-18)
[2017-03-30 07:22] LABS: TROPONIN I < 0.017 ng/mL (0.00-0.056)
[2017-03-30 08:00] VITALS: BP 150/70
[2017-03-30] MEDS: hydrALAZINE HCL 50 MG TABLET PO SCH ×2 (08:22→17:36)
[2017-03-30] MEDS: LEVOTHYROXINE SODIUM 100 MCG TABLET PO SCH (08:22)
[2017-03-30] MEDS: EZETIMIBE 10 MG TABLET PO SCH (08:22)
[2017-03-30] MEDS: MULTIVITAMIN/LUTEIN/MINERALS 1 TAB PO SCH ×2 (08:22→17:35)
[2017-03-30] MEDS: PANTOPRAZOLE 40 MG TABLET.DR PO SCH (08:23)
[2017-03-30] MEDS: LINAGLIPTIN 5 MG TABLET PO SCH (08:23)
[2017-03-30] MEDS: CHOLECALCIFEROL 1,000 UNIT TABLET (VIT D3) PO SCH ×2 (08:24→17:35)
[2017-03-30] MEDS: FERROUS SULFATE (325 MG) 325 MG/TAB TABLET PO SCH (08:25)
[2017-03-30] MEDS: FAMOTIDINE (20 MG) 20 MG TABLET PO SCH (08:25)
[2017-03-30] MEDS: CARVEDILOL 12.5 MG TABLET PO SCH ×2 (08:25→20:28)
[2017-03-30] MEDS: ONDANSETRON HCL/PF 4 MG/2 ML VIAL IVP PRN (10:08)
--- NOTE | 2017-03-30 13:00 | NUR ---
MS/RN NOTES REPORT RECEIVED FROM DAY NURSE FOR ALEIDA. PATIENT RESTING IN BED, SLEEPING AROUSES TO VERBAL STIMULI, A/X4. NOT IN ANY FROM OF DISTRESS OR DISCOMFORT. DENIES ANY PAIN AT THIS TIME. RESPIRATIONS EVEN AND UNLABORED, ON ROOM AIR. NO IV IN PLACE AT THIS TIME WILL ATTEMPT TO RE-INSERT. PATIENT APPEARS STABLE, CALM AND COMFORTABLE. SAFETY/FALL MEASURES RENDERED, CALL LIGHT PLACED WITHIN REACH. WILL CONTINUE TO MONITOR.
[2017-03-30 16:00] VITALS: BP 144/63
[2017-03-30] MEDS: ASPIRIN EC 81 MG TABLET.DR PO SCH (17:35)
[2017-03-30] MEDS: AMLODIPINE BESYLATE 5 MG TABLET PO SCH (17:37)
--- NOTE | 2017-03-30 18:52 | NUR ---
MS/RN NOTES PATIENT RESTING IN BED COMFORTABLY, NO SIGNIFICANT CHANGES NOTED. ALL DUE MEDICATIONS GIVEN, ALL NEEDS MET AND ATTENDED. PATIENTS CONDITION STABLE, NO FORM OF DISTRESS OR DISCOMFORT PRESENT. PATIENT KEPT CLEAN AND DRY. IV STARTED TO LEFT FA 22 G FOR IV ANTIBIOTIC ADMINISTRATION. WILL ENDORSE CARE TO CHALK EXTRUDING MACHINE OPERATOR FOR ALEIDA
--- NOTE | 2017-03-30 19:30 | NUR ---
MS RN INITIAL NOTES RECIEVED REPORT FROM DAY SHIFT. PT IS IN CHAIR A/O X3 ABLE TO COMMUNICATE NEEDS, PLAYING A BOARD GAME WITH A FAMILY MEMBER. NO SIGNS OF SOB OR DISTRESS. DENIES PAIN OR DIZZINESS. IV ACCESS ON LFA #22. WILL CONTINUE TO MONITOR PT
[2017-03-30 20:00] VITALS: BP 121/49
[2017-03-30] MEDS: SIMVASTATIN 20 MG TABLET PO SCH (20:28)
--- NOTE | 2017-03-30 22:14 | NUR ---
ACCUCHECK BG WAS 134. PT REFUSED INSULIN. EDUCATION WAS GIVEN, PT STILL REFUSED. WILL CONTINUE TO MONITOR FOR S/S OF HYPO/ HYPER GLYCEMIA
[2017-03-30] MEDS: CEFTRIAXONE 1 G in IV D5W 50 ML IV SCH (22:53)
--- NOTE | 2017-03-31 01:30 | NUR ---
RN NOTES RECEIVED PT ASLEEP, BREATHING REGULAR AND UNLABORED, NO SOB, ON ROOM AIR AND TOLERATED WELL. NO SIGNS OF DISTRESS AND DISCOMFORT NOTED. IV ACCESS ON LEFT FOREARM PATENT AND INTACT. KEPT COMFORTABLE AND ATTENDED. KEPT BED IN THE LOWEST POSITION, LOCKED, SIDE RAILS UP X2 WITH CALL LIGHT WITH IN REACH. WILL CONTINUE TO MONITOR PT.
[2017-03-31] MEDS: BLOOD SUGAR DIAGNOSTIC 1 EACH STRIP VI SCH ×4 (06:33→21:26)
[2017-03-31] MEDS: INSULIN REGULAR, HUMAN 100 UNIT/ML 3 ML VIAL SQ PRN (06:34)
--- NOTE | 2017-03-31 06:34 | NUR ---
RN NOTES BLOOD SUGAR CHECKED 102 MG/DL, NO INSULIN COVERAGE PER SLIDING SCALE. PT ALERT, NO SIGNS OF HYPOGLYCEMIA NOTED. WILL CONTINUE TO MONITOR PT.
--- NOTE | 2017-03-31 07:02 | NUR ---
RN NOTES PT AWAKE, HOB ELEVATED, NO SOB, NOT IN DISTRESS, ON ROOM AIR WITH GOOD SATURATION. VITAL SIGNS STABLE, AFEBRILE. NO SIGNS OF HYPOGLYCEMIA NOTED. NO COMPLAIN OF PAIN, NO EPISODE OF DIZZINESS, NAUSEA AND VOMITING. ALL DUE MEDS GIVEN. ASSISTED TO THE BATHROOM, SAFETY MEASURES AND FALL PRECAUTION OBSERVED. NO SIGNIFICANT CHANGE IN CONDITION NOTED. WILL ENDORSE TO MORNING RN FOR CONTINUITY OF CARE.
--- NOTE | 2017-03-31 07:07 | NUR ---
MS RN OPENING NOTES RECEIVED PT. FROM NIGHTSHIFT NURSE IN STABLE CONDITION. PT. IS A/O X4. NO SOB OR SIGNS OF DISTRESS NOTED, ON ROOM AIR AND SATING WELL AT 96%. PT. DENIES ANY PAIN AT THIS TIME OR DIZZINESS. NO EPISODES OF NAUSEA OR VOMITING DURING NIGHTSHIFT. IV PRESENT ON LEFT FOREARM 22G PATENT AND INTACT. NO REDNESS OR SIGNS OF INFILTRATION NOTED. BED IN LOW LOCKED POSITION, SIDE RAILS UP X2, CALL LIGHT WITHIN REACH. PT. INSTRUCTED TO CALL FOR ASSISTANCE WHEN NEEDED AND TO GO TO THE BATHROOM. PT. VERBALIZED UNDERSTANDING. WILL CONTINUE TO MONITOR.
[2017-03-31 08:00] VITALS: BP 145/65
[2017-03-31] MEDS: MULTIVITAMIN/LUTEIN/MINERALS 1 TAB PO SCH ×2 (08:09→18:10)
[2017-03-31] MEDS: FERROUS SULFATE (325 MG) 325 MG/TAB TABLET PO SCH (08:09)
[2017-03-31] MEDS: EZETIMIBE 10 MG TABLET PO SCH (08:10)
[2017-03-31] MEDS: CHOLECALCIFEROL 1,000 UNIT TABLET (VIT D3) PO SCH ×2 (08:10→17:21)
[2017-03-31] MEDS: hydrALAZINE HCL 50 MG TABLET PO SCH ×3 (08:10→17:20)
[2017-03-31] MEDS: CARVEDILOL 12.5 MG TABLET PO SCH ×2 (08:11→21:27)
[2017-03-31] MEDS: FAMOTIDINE (20 MG) 20 MG TABLET PO SCH (08:11)
[2017-03-31] MEDS: PANTOPRAZOLE 40 MG TABLET.DR PO SCH (08:12)
[2017-03-31] MEDS: LEVOTHYROXINE SODIUM 100 MCG TABLET PO SCH (08:12)
[2017-03-31] MEDS: LINAGLIPTIN 5 MG TABLET PO SCH (08:12)
--- NOTE | 2017-03-31 12:08 | NUR ---
MS RN NOTES PT.'S BLOOD SUGAR IS 134. PT. IS REFUSING INSULIN ADMINISTRATION. MEDICATION EDUCATION WAS REINFORCED AND SIGNS/SYMPTOMS OF HYPERGLYCEMIA WERE DISCUSSED WITH PT. PT. CONTINUE TO REFUSE. WILL CONTINUE TO MONITOR PT.
[2017-03-31 16:00] VITALS: BP 138/60
[2017-03-31] MEDS: AMLODIPINE BESYLATE 5 MG TABLET PO SCH (17:19)
[2017-03-31] MEDS: ASPIRIN EC 81 MG TABLET.DR PO SCH (17:21)
--- NOTE | 2017-03-31 18:41 | NUR ---
MS RN CLOSING NOTES PT. REMAINS IN STABLE CONDITION. ALL NEEDS WERE MET DURING SHIFT AND ORDERS CARRIED OUT ACCORDINGLY. NO ACUTE CHANGES IN CONDITION DURING SHIFT. PT. DENIES ANY PAIN, N/V ANT THIS TIME. NO EPISODES OF DIZZINESS DURING SHIFT. ALL SAFETY MEASURES IN PLACE. WILL ENDORSE TO NIGHTSHIFT NURSE FOR ALEIDA
--- NOTE | 2017-03-31 19:20 | NUR ---
MS/RN NOTES PT RECEIVED SITTING UP IN BED, A/OX4. ON ROOM AIR, NO SOB OR DISTRESS NOTED. BREATHING EVEN AND UNLABORED DENIES PAIN. ABLE TO MAKE NEEDS KNOWN. WALKER AT BEDSIDE. IV TO LFA PATENT AND INTACT. BED IN LOW/LOCKED POSITION WITH CALL LIGHT IN REACH. SIDE RAILS UPX2. WILL CONTINUE TO MONITOR
[2017-03-31 20:00] VITALS: BP 149/60
--- NOTE | 2017-03-31 21:42 | NUR ---
MS/RN NOTES BLOOD [id number]. PT REFUSED INSULIN ADMINISTRATION. EDUCATED PT ON RISKS/BENEFITS OF INSULIN AND MAINTENANCE OF BLOOD SUGAR CONTROL. PT STILL REFUSED. INFORMED HER OF REPORTABLE S/S OF HYPERGLYCEMIA
[2017-04-01] MEDS: BLOOD SUGAR DIAGNOSTIC 1 EACH STRIP VI SCH ×4 (06:51→21:23)
--- NOTE | 2017-04-01 07:05 | NUR ---
MS RN OPENING NOTES RECEIVED PT. FROM NIGHTSHIFT NURSE IN STABLE CONDITION. PT. IS A/O X4. NO SOB OR SIGNS OF DISTRESS NOTED, ON ROOM AIR AND SATING WELL AT 96%. PT. DENIES ANY PAIN AT THIS TIME OR DIZZINESS. PT. REPORTED FEELING NAUSEOUS A FEW HRS BUT IT IS SLOWLY SUBSIDING. IV PRESENT ON LEFT FOREARM 22G PATENT AND INTACT. NO REDNESS OR SIGNS OF INFILTRATION NOTED. BED IN LOW LOCKED POSITION, SIDE RAILS UP X2, CALL LIGHT WITHIN REACH. PT. INSTRUCTED TO CALL FOR ASSISTANCE WHEN NEEDED AND TO GO TO THE BATHROOM. WALKER BY BEDSIDE FOR AMBULATORY ASSISTANCE. PT. VERBALIZED UNDERSTANDING. WILL CONTINUE TO MONITOR.
--- NOTE | 2017-04-01 07:15 | NUR ---
MS/RN NOTES PT ASLEEP, EASILY AROUSABLE TO NAME. ON ROOM AIR, NO SOB OR DISTRESS NOTED. BREATHING EVEN AND UNLABORED. DENIES PAIN. PT NOTED OCCASIONAL NAUSEA AND LIGHT HEADEDNESS EARLY THIS AM. DAY SHIFT RN MADE AWARE. NO CHANGES OVERNIGHT. BLOOD SUGAR IN AM WAS 106. IV TO LFA PATENT AND INTACT. MADE PT COMFORTABLE THROUGHOUT SHIFT. ALL NEEDS MET AND ATTENDED. BED IN LOW/LOCKED POSITION WITH CALL LIGHT IN REACH. SIDE RAILS UPX2. ENDORSED TO AM SHIFT ALEIDA.
[2017-04-01] MEDS: PANTOPRAZOLE 40 MG TABLET.DR PO SCH (07:30)
[2017-04-01 08:00] VITALS: BP_SYST 106; BP_SYST 142; BP_SYST 145; BP_DIAS 62; BP_DIAS 66
[2017-04-01] MEDS: LINAGLIPTIN 5 MG TABLET PO SCH (09:00)
[2017-04-01] MEDS ORDERED: METOCLOPRAMIDE HCL 10 MG/2 ML VIAL IV ONE (09:00)
[2017-04-01] MEDS: LEVOTHYROXINE SODIUM 100 MCG TABLET PO SCH (09:00)
[2017-04-01] MEDS: MULTIVITAMIN/LUTEIN/MINERALS 1 TAB PO SCH ×2 (09:00→17:00)
[2017-04-01] MEDS: FERROUS SULFATE (325 MG) 325 MG/TAB TABLET PO SCH (09:00)
[2017-04-01] MEDS: CHOLECALCIFEROL 1,000 UNIT TABLET (VIT D3) PO SCH ×2 (09:00→18:05)
[2017-04-01] MEDS: FAMOTIDINE (20 MG) 20 MG TABLET PO SCH (09:00)
[2017-04-01] MEDS: CARVEDILOL 12.5 MG TABLET PO SCH ×2 (09:00→21:23)
[2017-04-01] MEDS: hydrALAZINE HCL 50 MG TABLET PO SCH ×3 (09:00→18:05)
[2017-04-01] MEDS: EZETIMIBE 10 MG TABLET PO SCH (09:00)
[2017-04-01 12:00] VITALS: BP 120/62
--- NOTE | 2017-04-01 12:22 | NUR ---
MS RN NOTES PT. DOWN FOR SCHEDULED EGD.
--- NOTE | 2017-04-01 13:03 | NUR ---
MS RN NOTES PT. ARRIVED BACK ON UNIT FROM EGD. GASTRITIS, HIATAL HERNIA, AND INFLAMMATION OF THE SMALL BOWEL WERE DISCOVERED. GASTRIC AND SMALL BOWEL BIOPSY WERE DONE. PT. IN STABLE CONDITION. STAT CT OF THE ABDOMEN AND PELVIS WITH CONTRAST WAS ORDERED PER DR. ROCHE'S ORDER. WILL ADVANCE PT'S DIET ONCE PT. IS BACK FROM EGD.
--- NOTE | 2017-04-01 13:44 | NUR ---
MS RN NOTES PT. TAKEN OFF UNIT FOR CT SCAN OF ABDOMEN AND PELVIS WITH CONTRAST
[2017-04-01] MEDS ORDERED: IV NS 0.9% 250 ML IV ONE (13:53)
[2017-04-01] MEDS ORDERED: CT SWABBABLE VALVE TRANS SET 1 EA INFUS.SET MC ONE (13:53)
[2017-04-01] MEDS ORDERED: IOHEXOL-300 100 ML VIAL IV ONE (13:53)
--- NOTE | 2017-04-01 14:15 | NUR ---
MS RN NOTES PT BACK ON UNIT FROM ST SCAN. WILL RESUME DIET ORDERED AND AWAIT CT RESULTS
[2017-04-01 16:00] VITALS: BP_SYST 105; BP_SYST 142; BP_DIAS 52; BP_DIAS 66
[2017-04-01] MEDS: AMLODIPINE BESYLATE 5 MG TABLET PO SCH (18:04)
[2017-04-01] MEDS: ASPIRIN EC 81 MG TABLET.DR PO SCH (18:04)
--- NOTE | 2017-04-01 19:03 | NUR ---
MS RN CLOSING NOTES PT. REMAINS IN STABLE CONDITION. ALL NEEDS WERE MET DURING SHIFT AND ORDERS CARRIED OUT ACCORDINGLY. ALL NEEDS ANTICIPATED FOR. NO ACUTE CHANGES IN CONDITION DURING SHIFT. PT. DENIES ANY PAIN, N/V AT THIS TIME. NO REPORTS OF NAUSEA AFTER EGD PROCEDURE. NO EPISODES OF DIZZINESS DURING SHIFT. ALL SAFETY MEASURES IN PLACE. PRESS SECRETARY AT BEDSIDE. WILL ENDORSE TO NIGHTSHIFT NURSE FOR ALEIDA
--- NOTE | 2017-04-01 19:30 | NUR ---
MS/RN NOTES PT AWAKE, CAREGIVER AT BEDSIDE. A/OX4. ON ROOM AIR, NO SOB OR DISTRESS NOTED. BREATHING EVEN AND UNLABORED. DENIES PAIN BUT NOTES SOME NAUSEA SINCE FINISHING DINNER. OFFERED ZOFRAN AND PT ACCEPTED. IV TO RFA PATENT AND INTACT. BED IN LOW/LOCKED POSITION WITH CALL LIGHT IN REACH. SIDE RAILS UPX2. WALKER AT BEDSIDE. WILL CONTINUE TO MONITOR
[2017-04-01] MEDS: ONDANSETRON HCL/PF 4 MG/2 ML VIAL IVP PRN (19:48)
[2017-04-01 20:00] VITALS: BP 153/65
--- NOTE | 2017-04-01 20:00 | NUR ---
MS/RN NOTES PT COMPLAINING OF NAUSEA. ADMINISTERED PRN ZOFRAN IV ORDERED. WILL MONITOR FOR EFFECTIVENESS
[2017-04-01 20:23] VITALS: BP 153/65
[2017-04-01 20:41] VITALS: BP 141/67
[2017-04-01] MEDS: SIMVASTATIN 20 MG TABLET PO SCH (21:23)
--- NOTE | 2017-04-01 21:28 | NUR ---
MS/RN NOTES BLOOD [id number]=[id number], PT REFUSING INSULIN ADMINISTRATION. EDUCATED PT ABOUT IMPORTANCE OF BLOOD SUGAR CONTROL, RISKS/BENEFITS OF INSULIN AND S/S OF HYPERGLYCEMIA. PT VERBALIZED UNDERSTANDING BUT STILL REFUSING INSULIN.
[2017-04-02] MEDS: BLOOD SUGAR DIAGNOSTIC 1 EACH STRIP VI SCH (06:33)
--- NOTE | 2017-04-02 06:48 | NUR ---
MS/RN NOTES BLOOD [id number], NO INSULIN PER SLIDING SCALE. SNACKS PROVIDED AT BEDSIDE. WILL MONITOR FOR S/S OF HYPOGLYCEMIA
--- NOTE | 2017-04-02 06:54 | NUR ---
MS/RN NOTES PT AWAKE, RESTING COMFORTABLY IN BED. REMAINS ON RA, NO SOB OR DISTRESS NOTED. BREATHING EVEN AND UNLABORED. DENIES NAUSEA AT THIS TIME. IV TO RFA PATENT AND INTACT. MADE PT COMFORTABLE THROUGHOUT SHIFT. ALL NEEDS MET AND ATTENDED. NO CHANGES OVERNIGHT. BED REMAINS IN LOW/LOCKED POSITION WITH CALL LIGHT IN REACH. SIDE RAILS UPX2. WILL ENDORSE TO AM SHIFT ALEIDA.
--- NOTE | 2017-04-02 07:45 | NUR ---
MS RN OPENING NOTE PATIENT IS ALERT AND ORIENTED x4. NO PAIN AT THIS TIME. NO SOB OR DISTRESS NOTED. CALL LIGHT WITHIN REACH. SAFETY MEASURES IMPLEMENTED. IV INTACT AND PATENT NO REDNESS OR SWELLING NOTED. ABLE TO COMMUNICATE NEEDS. 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 POSSIBLE DISCHARGE TODAY. WILL CONTINUE TO MONITOR
[2017-04-02 08:00] VITALS: BP 142/64
[2017-04-02] MEDS: CHOLECALCIFEROL 1,000 UNIT TABLET (VIT D3) PO SCH (08:11)
[2017-04-02] MEDS: FAMOTIDINE (20 MG) 20 MG TABLET PO SCH (08:12)
[2017-04-02] MEDS: LINAGLIPTIN 5 MG TABLET PO SCH (08:12)
[2017-04-02] MEDS: LEVOTHYROXINE SODIUM 100 MCG TABLET PO SCH (08:12)
[2017-04-02] MEDS: FERROUS SULFATE (325 MG) 325 MG/TAB TABLET PO SCH (08:12)
[2017-04-02] MEDS: PANTOPRAZOLE 40 MG TABLET.DR PO SCH (08:12)
[2017-04-02] MEDS: EZETIMIBE 10 MG TABLET PO SCH (08:12)
[2017-04-02 08:14] VITALS: BP 142/64
[2017-04-02] MEDS: CARVEDILOL 12.5 MG TABLET PO SCH (08:14)
[2017-04-02] MEDS: hydrALAZINE HCL 50 MG TABLET PO SCH (08:14)
[2017-04-02] MEDS: MULTIVITAMIN/LUTEIN/MINERALS 1 TAB PO SCH (08:24)
--- NOTE | 2017-04-02 11:38 | NUR ---
MS COMPENSATION BUSINESS PARTNER NOTE PATIENT IS ALERT AND ORIENTED x4. NO PAIN AT THIS TIME. NO SOB OR DISTRESS NOTED. CALL LIGHT WITHIN REACH AT ALL TIMES. SAFETY MEASURES IMPLEMENTED AT ALL TIMES. ABLE TO COMMUNICATE NEEDS. CAREGIVER AT BEDSIDE. ALL DUE MEDICATIONS GIVEN ORDERED. DISCHARGE INSTRUCTIONS GIVEN VERBALLY, READ BACK RESULTS. GAVE PATIENT TEACHING TO PATIENT AND CAREGIVER ABOUT DIABETIC DIET. IV REMOVED, SKIN INTACT. WOUND PICTURE DOCUMENTATION TAKEN. ALL BELONGINGS ACCOUNTED FOR, BOTH HEARING AIDS IN AT TIME OF DISCHARGE. LEFT VIA PRIVATE CAR WITH CAREGIVER ILANA.
[2017-04-02] MEDS ORDERED: CYANOCOBALAMIN 1,000 MCG/ML VIAL IM SCH (21:00)
== END 2017-04-02 12:00 | disposition home health service (06) | DRG 689 ==
LOC: ER 16:45 → TELE 20:18 → MED 03-29 09:50
PROVIDERS: ADMIT Internal Medicine; ATTEND Legal Medicine
PROC: 0DB98ZX Excision of Duodenum, Via Natural or Artificial Opening Endoscopic, Diagnostic (ICD-10-PCS; 2017-04-01)
PROC: 0DB68ZX Excision of Stomach, Via Natural or Artificial Opening Endoscopic, Diagnostic (ICD-10-PCS; principal; 2017-04-01 11:55)
DX: N39.0 Urinary tract infection, site not specified (principal); G93.41 Metabolic encephalopathy; E11.9 Type 2 diabetes mellitus without complications; I10 Essential (primary) hypertension; E78.5 Hyperlipidemia, unspecified; Z86.73 Personal history of transient ischemic attack (TIA), and cerebral infarction without residual deficits; Z95.1 Presence of aortocoronary bypass graft; E86.0 Dehydration; E03.9 Hypothyroidism, unspecified; K29.70 Gastritis, unspecified, without bleeding; K29.80 Duodenitis without bleeding; Z87.440 Personal history of urinary (tract) infections; Z79.899 Other long term (current) drug therapy
CPT/HCPCS: 36415; 71010-TC; 71260-TC; 72193-TC; 74160-TC; 76536-TC; 80048-TC; 80053-TC; 80061-TC; 80076-TC; 81000-TC; 82306; 82728-TC; 82962-TC; 83540-TC; 83605-TC; 83735-TC; 84100-TC; 84439-TC; 84443-TC; 84484-TC; 85025-TC; 85730-TC; 87040-TC; 87086-TC; 88305-TC; 88313-TC; 88342; 93307-TC; 93880-TC; 97001-TC; A4606; J0696; J1815; J2405; J2765; J3490; J7030; J7050; J7060; Q9967; Z7610